=== PATIENT | female | born 1945 | race Caucasian/White ===

== ENCOUNTER 2017-09-21 19:49 | Observation (INO) | payer BC ==
[~2017-09-21] VITALS: Ht 160 cm; Wt 91.3 kg
[~2017-09-21 19:49] MED LIST: ACYCLOVIR400 MG PO; ALENDRONATE70 MG OR; ALEVE220 M1 OR; AMOXICILLIN/CL875 MG OR; AMOXICILLIN/CL875 MG PO; AMOXICILLIN875 MG PO; AUGMENTIN875TAB OR; AUGMENTIN875TAB PO; AZELASTINE0.1 %; AZITHROMYCIN500 MG OR; CALCI17; CIPRO500 MG; CODEINE PO; DEPO-MEDROL80 MG/ML IM; DOXYCYCL HYC100 MG PO; FLEXERIL5 M1 PO; FLONASE NASAL50 MCG; HYDROCO/APAP1 T12 OR; IBUPROFEN800 MG PO; KEFLEX500 MG PO; LEVOTHYROXIN137 MCG PO; LUTEIN1 CAP OR; MEDDOSEPAK PO; MELATONIN1 MG; METFORMIN500 MG PO; METO50TA52; METO50TA52 OR; METOPROLOL SUCC50 MG OR; METOPROLOL100 M1 PO; MUCINEX600 MG PO; MULTIVITAM10 OR; NAPROSYN500 MG PO; NAPROXEN SOD OR; NYSTATIN100000 M3 TOP; OMEGA OR; PERCOCET 5/325M1 TAB PO; PNEUMOVAX 23 IM; PREDNISONE20 MG PO; PROBIOTI2; ROBITUSSIN AC10 ML PO; SUDAFED 24HR1 TAB OR; SYNTHROID100 MCG; SYNTHROID100 MCG OR; SYNTHROID100 MCG PO; TERBINAFINE250 M1 PO; TESSALON PER100 MG; TUBERSOL5 MG/0.1 M ID; VICODIN1 TAB PO; VITAMIN D32000 UNI2 PO; VITAMIN D32000 UNIT OR; ZESTRIL10 MG PO; ZOFRAN ODT8 MG OR; ZOSTAVAX IM; ZYRTEC-D AL1 OR; ZYRTEC10 M5 PO; [UNRECOGNIZED DRUG - OTHER] OR; [UNRECOGNIZED DRUG - OTHER] OR
[2017-09-21 20:20] LABS: HEMATOCRIT 38.7 % (37.0-47.0); HEMOGLOBIN 12.6 g/dl (12.0-16.0); IMMATURE GRANULOCYTES 0.7 % (0.0-1.0); MEAN CELL VOLUME 85.4 fL CALC (80.0-100.0); MEAN CORPUSCULAR HGB 27.8 pG CALC (26.0-32.0); MEAN CORPUSCULAR HGB CONC 32.6 g/L CALC (32.0-36.0); NEUT# 7.98 thou/uL (2.00-7.15); RED BLOOD COUNT 4.53 mill/uL (4.20-5.60); RED CELL DISTRI WIDTH 13.5 % (11.5-15.5)
[2017-09-21 20:38] LABS: ALBUMIN 4.2 g/dL (3.2-5.0); ALKALINE PHOSPHATASE 71 u/l (38-126); ANION GAP 19 (6-22 (CALC)); BILIRUBIN, TOTAL 0.6 mg/dL (0.0-1.4); BUN 21 mg/dL (8-23); BUN/CREATININE RATIO 25 (12-20 (CALC)); CARBON DIOXIDE 20 mmol/l (22-30); CHLORIDE 107 mmol/l (95-108); CREATININE 0.8 mg/dL (0.5-1.0); GFR > 60 ML/MIN (>=60 (CALC)); GFR FOR AFR.AMER. > 60 ML/MIN (>=60 (CALC)); SGOT/AST 34 u/l (9-36); SGPT/ALT 61 u/l (11-66); SODIUM 142 mmol/l (137-146); TOTAL PROTEIN 7.4 g/dL (6.3-8.2)
[2017-09-21] MEDS ORDERED: METOPROL TAR25 MG PO (22:56)
[2017-09-21] MEDS ORDERED: SINGULAIR10 MG PO (22:58)
[2017-09-21] MEDS ORDERED: LUMIGAN0.01 % OD (23:01)
[2017-09-21] MEDS ORDERED: AZELASTINE0.05 % (23:04)
[2017-09-22] VITALS (7 sets, daily range): BP systolic 99–130; BP diastolic 45–77
[2017-09-22 05:08] LABS: HEMATOCRIT 36.7 % (37.0-47.0); HEMOGLOBIN 11.8 g/dl (12.0-16.0); IMMATURE GRANULOCYTES 0.4 % (0.0-1.0); MEAN CELL VOLUME 85.7 fL CALC (80.0-100.0); MEAN CORPUSCULAR HGB 27.6 pG CALC (26.0-32.0); MEAN CORPUSCULAR HGB CONC 32.2 g/L CALC (32.0-36.0); NEUT# 6.75 thou/uL (2.00-7.15); RED BLOOD COUNT 4.28 mill/uL (4.20-5.60); RED CELL DISTRI WIDTH 13.4 % (11.5-15.5)
[2017-09-22 05:28] LABS: ANION GAP 16 (6-22 (CALC)); BUN 16 mg/dL (8-23); BUN/CREATININE RATIO 21 (12-20 (CALC)); CARBON DIOXIDE 24 mmol/l (22-30); CHLORIDE 108 mmol/l (95-108); CREATININE 0.8 mg/dL (0.5-1.0); GFR > 60 ML/MIN (>=60 (CALC)); GFR FOR AFR.AMER. > 60 ML/MIN (>=60 (CALC)); SODIUM 144 mmol/l (137-146)
[2017-09-22 06:30] LABS: URINE BILIRUBIN - DIPSTICK NEGATIVE (NEGATIVE); URINE BLOOD DIPSTICK NEGATIVE (NEGATIVE); URINE COLOR YELLOW; URINE GLUCOSE - DIPSTICK NEGATIVE (NEGATIVE); URINE KETONE NEGATIVE (NEGATIVE); URINE LEUK ESTERASE NEGATIVE (NEGATIVE); URINE NITRITE - DIPSTICK NEGATIVE (Negative); URINE PROTEIN - DIPSTICK NEGATIVE (NEG-TRACE); URINE UROBILINOGEN - DIPSTICK 0.2 E.U./dL (0.2)
[2017-09-22 06:31] LABS: URINE CLARITY SL CLOUDY
[2017-09-22 18:29] LABS: CHOLESTEROL HDL RATIO 2.6 (<4.4 (CALC))
[2017-09-23 04:32] VITALS: BP 129/68
[2017-09-23 05:06] LABS: ANION GAP 13 (6-22 (CALC)); BUN 12 mg/dL (8-23); BUN/CREATININE RATIO 16 (12-20 (CALC)); CARBON DIOXIDE 25 mmol/l (22-30); CHLORIDE 108 mmol/l (95-108); CREATININE 0.7 mg/dL (0.5-1.0); GFR > 60 ML/MIN (>=60 (CALC)); GFR FOR AFR.AMER. > 60 ML/MIN (>=60 (CALC)); MAGNESIUM 1.9 mg/dL (1.6-2.3); POTASSIUM 3.9 mmol/l (3.5-5.1); SODIUM 142 mmol/l (137-146)
[2017-09-23 05:12] LABS: HEMATOCRIT 36.8 % (37.0-47.0); HEMOGLOBIN 11.7 g/dl (12.0-16.0); MEAN CELL VOLUME 86.2 fL CALC (80.0-100.0); MEAN CORPUSCULAR HGB 27.4 pG CALC (26.0-32.0); MEAN CORPUSCULAR HGB CONC 31.8 g/L CALC (32.0-36.0); RED BLOOD COUNT 4.27 mill/uL (4.20-5.60); RED CELL DISTRI WIDTH 13.5 % (11.5-15.5)
[2017-09-23 07:20] VITALS: BP 124/79
[2017-09-23 11:10] VITALS: BP 103/53
[2017-09-23 18:27] VITALS: BP 136/73
[2017-09-23 19:24] VITALS: BP 123/70
[2017-09-23 23:50] VITALS: BP 109/73
[2017-09-24 03:52] VITALS: BP 149/83
[2017-09-24 08:37] VITALS: BP 140/61
[2017-09-24 11:56] VITALS: BP 139/70
[2017-09-24] MEDS ORDERED: ANTIVERT PO (13:08)
== END 2017-09-24 14:05 | disposition home or self-care (01) | DRG 149 ==
LOC: ED 19:49 → ED-I 22:00 → ED 23:03 → MS2 23:04
PROVIDERS: Emergency Medicine; Nurse Practitioner Family; ADMIT Internal Medicine; ATTEND Internal Medicine
DX: H81.10 Benign paroxysmal vertigo, unspecified ear (principal); E03.9 Hypothyroidism, unspecified; I10 Essential (primary) hypertension; M19.90 Unspecified osteoarthritis, unspecified site; H40.9 Unspecified glaucoma; Z87.891 Personal history of nicotine dependence
CPT/HCPCS: G0378

== ENCOUNTER → 2018-08-10 | Outpatient (REF) | payer BC ==
[~2018-08-10] MED LIST changes: +ANTIVERT PO; +AZELASTINE0.05 %; +LUMIGAN0.01 % OD; +METOPROL TAR25 MG PO; +SINGULAIR10 MG PO
== END | disposition home or self-care (01) | DRG 556 ==
LOC: DI 10:53
PROVIDERS: ATTEND Podiatrist Foot & Ankle Surgery
DX: M79.671 Pain in right foot (principal); M77.31 Calcaneal spur, right foot

== ENCOUNTER 2019-02-27 06:39 | Day surgery (SDC) | payer BC ==
[~2019-02-27 06:39] MED LIST changes: +ALLEGRA ALLERGY60 MG PO; +ARNUITY EL50 MCG/ACT; +BIO-FLAX1000 MG PO; +BONIVA150 M1 PO; +CALCI23 PO; +CLONAZEP ODT1 MG PO; +CLONAZEPAM1 MG PO; +FLAXSEED OIL1000 MG PO; +FLONASE AL50 MCG/ACT; +HM LUTEIN20 MG PO; +LOSARTAN POTASS50 MG PO; +LUTEIN6 M1 PO; +MECLIZINE25 MG PO; +MONTELUKAST SOD10 MG PO; +MULTI VIT PO; +MULTIVITAMIN AD1 TA1 PO; +PAZEO0.7 % OU; +SUDAFED CONGEST30 MG PO; +TOPROL XL25 MG PO; +VITAMIN D32000 UNIT PO; +VITAMIN D3400 UNI2 PO; +ZYRTEC10 MG PO
[2019-02-27 09:58] VITALS: BP 131/76
== END 2019-02-27 10:12 | disposition home or self-care (01) | DRG 951 ==
LOC: ENDO 06:39 → ORM 08:00 → ENDO 08:00
PROVIDERS: ATTEND Surgery
PROC: 0DBH8ZX Excision of Cecum, Via Natural or Artificial Opening Endoscopic, Diagnostic (ICD-10-PCS; principal; 2019-02-27)
PROC: 0DBL8ZX Excision of Transverse Colon, Via Natural or Artificial Opening Endoscopic, Diagnostic (ICD-10-PCS; 2019-02-27)
PROC: 0DBF8ZX Excision of Right Large Intestine, Via Natural or Artificial Opening Endoscopic, Diagnostic (ICD-10-PCS; 2019-02-27)
DX: Z12.11 Encounter for screening for malignant neoplasm of colon (principal); D12.0 Benign neoplasm of cecum; D12.3 Benign neoplasm of transverse colon; K57.30 Diverticulosis of large intestine without perforation or abscess without bleeding; I10 Essential (primary) hypertension; Z86.010 Personal history of colon polyps

== ENCOUNTER 2021-09-05 04:27 | Emergency (ER) | payer MEDICARE, OTHER ==
[~2021-09-05] VITALS: Ht 160 cm; Wt 74.0 kg
[~2021-09-05 04:27] MED LIST changes: +LOSARTAN POTASS25 MG PO
[2021-09-05 04:34] VITALS: BP 156/77
[2021-09-05 05:01] VITALS: BP 145/67
[2021-09-05 07:05] LABS: HEMATOCRIT 39.3 % (37.0-47.0); HEMOGLOBIN 12.6 g/dl (12.0-16.0); IMMATURE GRANULOCYTES 0.5 % (0.0-5.0); MEAN CELL VOLUME 86.8 fL CALC (80.0-100.0); MEAN CORPUSCULAR HGB 27.8 pG CALC (26.0-32.0); MEAN CORPUSCULAR HGB CONC 32.1 g/dL CAL (32.0-36.0); NEUT# 7.31 thou/uL (2.00-7.15); RED BLOOD COUNT 4.53 mill/uL (4.20-5.60)
[2021-09-05 07:28] VITALS: BP 154/70
[2021-09-05 07:41] LABS: ALBUMIN 3.9 g/dL (3.2-5.0); ALKALINE PHOSPHATASE 67 u/l (38-126); ANION GAP 15 (6-22 (CALC)); BILIRUBIN, TOTAL 0.9 mg/dL (0.0-1.4); BUN 16 mg/dL (8-23); BUN/CREATININE RATIO 20 (12-20 (CALC)); CARBON DIOXIDE 21 mmol/l (22-30); CHLORIDE 107 mmol/l (95-108); CPK 26 u/l (30-165); CREATININE 0.8 mg/dL (0.5-1.0); GFR > 60 ML/MIN (>=60 (CALC)); GFR FOR AFR.AMER. > 60 ML/MIN (>=60 (CALC)); MAGNESIUM 1.9 mg/dL (1.6-2.3); POTASSIUM 4.3 mmol/l (3.5-5.1); SGOT/AST 22 u/l (9-36); SODIUM 139 mmol/l (137-146)
[2021-09-05 07:45] LABS: URINE BILIRUBIN - DIPSTICK NEGATIVE (NEGATIVE); URINE BLOOD DIPSTICK NEGATIVE (NEGATIVE); URINE COLOR YELLOW; URINE GLUCOSE - DIPSTICK NEGATIVE (NEGATIVE); URINE KETONE NEGATIVE (NEGATIVE); URINE LEUK ESTERASE NEGATIVE (NEGATIVE); URINE PH 5.5 (4.5-8.0); URINE PROTEIN - DIPSTICK NEGATIVE (NEG-TRACE); URINE SPECIFIC GRAVITY >=1.030; URINE UROBILINOGEN - DIPSTICK 0.2 E.U./dL (0.2)
[2021-09-05 07:47] LABS: URINE NITRITE - DIPSTICK NEGATIVE (Negative)
[2021-09-05] MEDS ORDERED: HYDROCO/APAP1 TA9 PO (08:26)
[2021-09-05 08:30] VITALS: BP 154/70
== END 2021-09-05 08:40 | disposition home or self-care (01) ==
LOC: ED 04:27
PROVIDERS: Family Medicine
DX: M54.6 Pain in thoracic spine (principal); I10 Essential (primary) hypertension; E03.9 Hypothyroidism, unspecified; X50.0XXA Overexertion from strenuous movement or load, initial encounter

== ENCOUNTER 2022-03-26 10:46 | Emergency (ER) | payer MEDICARE, OTHER ==
[~2022-03-26] VITALS: Ht 160 cm; Wt 75.0 kg
[~2022-03-26 10:46] MED LIST changes: +HYDROCO/APAP1 TA9 PO
[2022-03-26 11:35] VITALS: BP 183/79
== END 2022-03-26 11:40 | disposition home or self-care (01) ==
LOC: ED 10:46
DX: S81.811A Laceration without foreign body, right lower leg, initial encounter (principal); I10 Essential (primary) hypertension; E03.9 Hypothyroidism, unspecified; W45.0XXA Nail entering through skin, initial encounter; Y93.E9 Activity, other interior property and clothing maintenance; Y92.009 Unspecified place in unspecified non-institutional (private) residence as the place of occurrence of the external cause

== ENCOUNTER 2024-02-01 05:02 | Emergency (ER) | payer MEDICARE, OTHER ==
[~2024-02-01] VITALS: Ht 160 cm; Wt 61.0 kg
[~2024-02-01 05:02] MED LIST changes: +AFRIN PUMP MIS0.05 %; +BIOTIN MAXI10000 MCG PO; +CA/MG/ZINC PO; +CHERATUSSIN PO; +FISH OIL1200 M2 PO; +IBANDRONATE SO150 MG PO; +MOUNJARO2.5 MG SC; +QUERCETIN500 MG PO; +SLEEP CHILDRENS; +SYNTHROID PO; +SYNTHROID88 MCG PO; +XYZAL ALLERGY 245 MG; +ZPAK PO
[2024-02-01] MEDS ORDERED: ACETAMINOPHEN 500 MG TAB PO ONE (05:45)
[2024-02-01] MEDS ORDERED: methylPREDNISolone SODIUM SUCC 125 MG/2 ML SDV IM ONE (05:45)
[2024-02-01] MEDS ORDERED: KETOROLAC TROMETHAMINE 30 MG/ML SDV IM ONE (05:45)
[2024-02-01 05:59] LABS: BASO% 0.7 % (0-3); EOS% 1.5 % (0-8); HEMATOCRIT 38.2 % (37.0-47.0); HEMOGLOBIN 12.5 g/dl (12.0-16.0); IMMATURE GRANULOCYTES 0.3 % (0.0-5.0); LYMPH% 18.2 % (15-41); MEAN CELL VOLUME 86.4 fL CALC (80.0-100.0); MEAN CORPUSCULAR HGB 28.3 pG CALC (26.0-32.0); MEAN CORPUSCULAR HGB CONC 32.7 g/dL CAL (32.0-36.0); MONO% 8.7 % (2-13); NEUT# 7.19 thou/uL (2.00-7.15); NEUT% 70.6 % (42-76); RED BLOOD COUNT 4.42 mill/uL (4.20-5.60); RED CELL DISTRI WIDTH 14.3 % (11.5-15.5)
[2024-02-01 06:55] LABS: CREATININE 0.9 mg/dL (0.5-1.0); POTASSIUM 3.6 mmol/l (3.5-5.1)
[2024-02-01 07:43] VITALS: BP 144/78
[2024-02-01 08:16] VITALS: BP 161/132
[2024-02-01] MEDS ORDERED: PREDNISONE50 MG PO (08:48)
[2024-02-01 08:59] VITALS: BP 151/75
[2024-02-01 09:08] VITALS: BP 151/75
[2024-02-03] MEDS ORDERED: MAGNESIUM XX (08:26)
[2024-02-03] MEDS ORDERED: [UNRECOGNIZED DRUG - OTHER] (08:28)
== END 2024-02-01 09:09 | disposition home or self-care (01) ==
LOC: ED 05:02
PROVIDERS: Family Medicine
DX: M25.571 Pain in right ankle and joints of right foot (principal); I10 Essential (primary) hypertension; E03.9 Hypothyroidism, unspecified

== ENCOUNTER 2024-02-06 08:13 | Day surgery (SDC) | payer MEDICARE, OTHER ==
[~2024-02-06] VITALS: Ht 160 cm; Wt 61.2 kg
[~2024-02-06 08:13] MED LIST changes: +MAGNESIUM XX; +PREDNISONE50 MG PO; +[UNRECOGNIZED DRUG - OTHER]
[2024-02-06] MEDS ORDERED: FAMOTIDINE 10MG/ML 2ML SDV IV ONE (08:17)
[2024-02-06] MEDS ORDERED: LACTATED RINGER'S 1,000 ML IV ONE (08:17)
[2024-02-06 10:16] VITALS: BP 122/76
[2024-02-06] MEDS ORDERED: LIDOCAINE HCL 2% 2ML SDV IV ONE (13:00)
[2024-02-06] MEDS ORDERED: PROPOFOL 200 MG/20 ML VIAL IV ONE (13:00)
[2024-02-06] MEDS ORDERED: GLYCOPYRROLATE 0.2 MG/ML IV ONE (13:00)
== END 2024-02-06 10:10 | disposition home or self-care (01) ==
LOC: ORM 08:13
PROVIDERS: ATTEND Internal Medicine Gastroenterology
PROC: 0DBM8ZX Excision of Descending Colon, Via Natural or Artificial Opening Endoscopic, Diagnostic (ICD-10-PCS; principal; 2024-02-06)
DX: Z12.11 Encounter for screening for malignant neoplasm of colon (principal); D12.4 Benign neoplasm of descending colon; K57.30 Diverticulosis of large intestine without perforation or abscess without bleeding; K64.8 Other hemorrhoids; E03.9 Hypothyroidism, unspecified; Z86.010 Personal history of colon polyps

== ENCOUNTER 2024-06-13 13:57 | Emergency (ER) | payer MEDICARE, OTHER ==
[~2024-06-13] VITALS: Ht 160 cm; Wt 64.0 kg
[2024-06-13] MEDS ORDERED: LIDOcaine HCl 1% (Local Anesth.) 20 ML VIAL STI STA (14:12)
[2024-06-13] MEDS ORDERED: NEOMYCIN-BACITRACIN-POLYMYXIN 0.5 GM/PAK PAK TOP ONE (14:15)
[2024-06-13] MEDS ORDERED: SODIUM CHLORIDE 500 ML BTL IR ONE (14:15)
[2024-06-13] MEDS ORDERED: POVIDONE IODINE 0.5 OZ/BTL TOP ONE (14:15)
[2024-06-13 14:30] VITALS: BP 148/84
[2024-06-13 14:55] VITALS: BP 148/84
== END 2024-06-13 15:05 | disposition home or self-care (01) ==
LOC: ED 13:57
PROC: 0HQFXZZ Repair Right Hand Skin, External Approach (ICD-10-PCS; principal; 2024-06-13)
DX: S61.210A Laceration without foreign body of right index finger without damage to nail, initial encounter (principal); I10 Essential (primary) hypertension; E03.9 Hypothyroidism, unspecified; W26.8XXA Contact with other sharp object(s), not elsewhere classified, initial encounter

== ENCOUNTER 2024-06-15 21:21 | Emergency (ER) | payer MEDICARE, OTHER ==
[~2024-06-15] VITALS: Ht 160 cm; Wt 63.0 kg
[2024-06-15 22:06] VITALS: BP 131/80
== END 2024-06-15 22:06 | disposition home or self-care (01) ==
LOC: ED 21:21
DX: T81.33XA Disruption of traumatic injury wound repair, initial encounter (principal); I10 Essential (primary) hypertension; E03.9 Hypothyroidism, unspecified; Y83.8 Other surgical procedures as the cause of abnormal reaction of the patient, or of later complication, without mention of misadventure at the time of the procedure